=== PATIENT | male | born 1955 | race Caucasian/White ===

== ENCOUNTER 2022-05-19 10:35 | Emergency (ER) | payer MEDICARE, OTHER ==
[~2022-05-19] VITALS: Ht 180.3 cm; Wt 90.7 kg
--- NOTE | 2022-05-19 10:40 | NUR ---
RECEVED PT 66 YRS MALE CAME BY SIMONE C/O dizzness this morning awake and alert diness any weekness
--- NOTE | 2022-05-19 10:47 | NUR ---
PT SEEN BY MD AT BEDSIDE
--- NOTE | 2022-05-19 10:55 | NUR ---
Inserted ango catheter G 20 on rt for arm blood drow and sent to lab
[2022-05-19] MEDS ORDERED: IV NS 0.9% 500 ML BAG IV ONE (11:00)
--- NOTE | 2022-05-19 11:05 | NUR ---
accu check done 195mg/ld NOTEFED
--- NOTE | 2022-05-19 11:10 | NUR ---
CXRAY done at bed side
[2022-05-19 11:11] LABS: BASOPHILS # (AUTO) 0.1 K/uL (0.0-0.2); BASOPHILS % (AUTO) 1.3 % (0.0-2.0); EOSINOPHILS % (AUTO) 1.5 % (0.0-6.0); HEMATOCRIT 47 % (39-51); HEMOGLOBIN 15.5 g/dL (13.5-17.5); LYMPHOCYTES # (AUTO) 1.9 K/uL (0.8-4.8); LYMPHOCYTES % (AUTO) 31.4 % (20.0-44.0); MEAN CORPUSCULAR HGB CONC 33 g/dl (31.0-36.0); MEAN CORPUSCULAR VOLUME 88 fL (80-96); MONOCYTES # (AUTO) 0.4 K/uL (0.1-1.30); NEUTROPHILS # (AUTO) 3.6 K/uL (1.8-8.9); NEUTROPHILS % (AUTO) 59.8 % (43.0-81.0); PLATELET COUNT (AUTO) 146 K/uL (150-450); RED BLOOD CELL COUNT(AUTO) 5.29 MIL/uL (4.5-6.0); WHITE BLOOD COUNT (AUTO) 6.1 K/uL (4.3-11.0)
[2022-05-19 11:40] LABS: ALANINE AMINOTRANSFERASE 39 U/L (12-78); ALBUMIN 4.4 g/dL (3.4-5.0); ALKALINE PHOSPHATASE 82 U/L (46-116); ASPARTATE AMINOTRANSFERASE 20 U/L (15-37); BILIRUBIN,DIRECT 0.2 mg/dL (0.0-0.2); BILIRUBIN,TOTAL 1.1 mg/dL (0.2-1.0); CALCIUM, SERUM 9.5 mg/dL (8.5-10.1); CARBON DIOXIDE 28 mmol/L (21-32); CHLORIDE 101 mmol/L (98-107); CREATININE 1.1 mg/dL (0.6-1.3); GLUCOSE 200 mg/dL (74-106); POTASSIUM 3.6 mmol/L (3.5-5.1); SODIUM SERUM 138 mmol/L (136-145); TOTAL PROTEIN, SERUM 7.5 g/dL (6.4-8.2); UREA NITROGEN, BLOOD 13 mg/dL (7-18)
--- NOTE | 2022-05-19 12:00 | NUR ---
jeannine FOR LAB RESULT
--- NOTE | 2022-05-19 12:30 | NUR ---
AT BED SIDE SIDE SPOOK WITH PT ABOUT PLAN OF CARE
--- NOTE | 2022-05-19 12:40 | NUR ---
IV removed. Catheter intact and site benign. Pressure and 4x4 applied to site. No bleeding noted.
--- NOTE | 2022-05-19 12:45 | NUR ---
Patient discharged to home in stable condition. Written and verbal after care instructions given. Patient verbalizes understanding of instruction.
[2022-05-19 13:05] VITALS: BP 133/90
[2022-05-22] MEDS ORDERED: ONDANSETRON 4 MG TAB.RAPDIS ONE (22:05)
== END 2022-05-19 13:06 | disposition home or self-care (01) ==
LOC: ER 10:35
DX: R42 Dizziness and giddiness (principal); R73.9 Hyperglycemia, unspecified
CPT/HCPCS: 99285; 71045; 93005; 85025; 80048; 80076; 36415; 84484; 82962; J7040